=== PATIENT | male | born 1950 | race Caucasian/White ===

== ENCOUNTER → 2023-06-13 17:18 | Outpatient (REF) | payer MEDICARE, OTHER, SELFPAY | LOC: MRI 17:18 | PROVIDERS: ATTENDING PHYSICIAN Otolaryngology; FAMILY PHYSICIAN Student in an Organized Health Care Education/Training Program | DX: R13.12 Dysphagia, oropharyngeal phase (principal); R49.0 Dysphonia; R22.1 Localized swelling, mass and lump, neck | CPT/HCPCS: 70546; A9585 ==

== ENCOUNTER 2023-09-19 18:58 | Emergency (ER) | payer MEDICARE, OTHER, SELFPAY ==
[2023-09-19] VITALS (7 sets, daily range): BP systolic 121–148; BP diastolic 56–91; BMI 41.7
--- NOTE | 2023-09-19 19:24 | ED.GENMED ---
History of Present Illness
General
Chief Complaint: Dizziness
Source: patient and spouse
Exam Limitations: none
Time Seen by Provider: 09/19/23 19:07
Travel History
Have you had any contact with someone who has COVID-19?: No
Do you have any symptoms of coronavirus? Fever > 100 degrees, chills, cough, shortness of breath, sore throat, loss of taste or smell, muscle aches, or headache?: No
History of Present Illness
History of Present Illness:
72-year-old male who presents after he developed dizziness, lightheadedness and chest pressure. Patient states he was mowing the lawn on his riding mower stopped working. He had to push it up and then had to take the deck apart to fix it. As he
was cleaning it up and coming in he began to have chest pressure and felt lightheaded and asked his to check his blood pressure. Was found to be 90 systolic. Patient states he did feel little short of breath. He feels a little better now but
does feel little bit of chest tightness when he breathes deep. Patient admits he was not drinking much water. He has a history of pulmonary embolism but was after having a surgery and is no longer anticoagulated. No palpitations
Past History
Past History
ED Past Medical History: Asthma, HTN, Hypercholesterolemia, NIDDM, Renal failure (Renal insufficiency) and Other (Diverticulitis with colon resection colostomy and reversal, prostate enlargement, GI bleed, pneumonia, sleep apnea)
ED Past Surgical History: Appendectomy, Bowel resection and Tonsilectomy
Social History
Tobacco: Non-smoker
Personal:
Living: with family
Family History
Family History: Unable to obtain
Phy Exam
Physical Exam
Physical Exam:
CONSTITUTIONAL Patient alert and oriented to person, place and time. Well-appearing. Vital signs reviewed.
HEAD atraumatic, normocephalic.
EYES eyelids normal to inspection, Extraocular muscles intact, Conjunctiva normal, Sclera normal.
NECK normal range of motion, Trachea midline, no jugular venous distention.
RESPIRATORY CHEST No respiratory distress noted, Chest expansion equal, Bilateral breath sounds clear.
CARDIOVASCULAR regular rate and rhythm, Heart sounds normal.
ABDOMEN abdomen nontender, Bowel sounds normal. No distention.
BACK normal inspection, no obvious deformities
UPPER EXTREMITY range of motion normal, Motor strength normal, no cyanosis, no edema.
LOWER EXTREMITY range of motion normal, Motor strength normal, no cyanosis, trace bilateral edema.
NEURO Speech normal, No focal motor deficits, [place] coma scale 15, Memory normal, Cranial Nerves intact to screening exam.
SKIN skin warm, dry, and normal in color.
PSYCHIATRIC patient oriented to person place and time, Normal affect.
Course
Orders/Labs/Results
Orders:
Orders
09/19/23 19:15
Electrocardiogram (*1) Urgent
Reason for Study: Chest Pain
EKG- Treatment ONCE
09/19/23 19:20
Complete Blood Count/With Diff Urgent
Comprehensive Metabolic Panel Urgent
Troponin I Urgent
09/19/23 19:29
0.9% Sodium Chloride 500 ml [Nss] 500 ml IV BOLUS
CR Chest - 2 Views Urgent
Comment:
Reason For Exam: CP
09/19/23 20:19
0.9% Sodium Chloride 500 ml [Nss] 500 ml IV BOLUS
09/19/23 20:52
EKG- Treatment ONCE
09/19/23 22:17
Troponin I Urgent
09/19/23 22:20
Electrocardiogram (*1) Urgent
Reason for Study: Chest Pain
09/19/23 22:41
0.9% Sodium Chloride 500 ml [Nss] 500 ml IV BOLUS
Abnormal Lab Results
09/19/23
19:20
WBC 11.8 H 10^3/uL
(4.8-10.8)
RBC 4.36 L 10^6/uL
(4.70-6.10)
Hct 38.8 L %
(39.0-52.0)
Absolute Neuts (auto) 7.9 H 10^3/uL
(1.4-6.5)
Absolute Monos (auto) 1.3 H 10^3/uL
(0.1-0.6)
Lymphocytes % 18.8 L %
(20.5-51.1)
Monocytes % 11.0 H %
(1.7-9.3)
Chloride 110 H mmol/L
(98-107)
Carbon Dioxide 18 L mmol/L
(22-30)
BUN 49 H mg/dl
(9-20)
Creatinine 2.6 H mg/dL
(0.7-1.3)
09/19/23 19:20
09/19/23 19:20
Vital Signs
Initial and Last Documented VS:
Initial Vital Signs
Temp Pulse Resp BP Pulse Ox
98.2 F 59 20 135/67 98
09/19/23 19:02 09/19/23 19:02 09/19/23 19:02 09/19/23 19:02 09/19/23 19:02
Last Documented Vital Signs
Temp Pulse Resp BP Pulse Ox
98.2 F 56 11 123/65 97
09/19/23 19:02 09/19/23 23:00 09/19/23 23:00 09/19/23 23:00 09/19/23 23:00
MDM/Problems Addressed
MDM/Problems Addressed:
Near syncope, chest pain
*Pulse Oximetry
Patient hypoxic: no
*EKG
Interpreted by ED Provider?: Yes
Interpretation: abnormal
Comparison EKG: no changes
Rate: normal
Rhythm: sinus
QRS Pattern: right bundle branch block
Ischemia: non-specific ST changes
*[employer] Interpretation
Rate: normal
Interpretation: normal
Rhythm: sinus
*Critical Care Note
Total Time (30-74mins, 75-104mins- exclusive of procedures): Not Applicable
Data Reviewed
Review of Other/Old Records Reveals: Other (Prior echocardiogram from February 2022 reviewed)
Prescriptions/Medications Considered But Not Given:
Consider nitroglycerin but chest pain resolved.
Patient Management
Escalation/DeEscalation of care consider admission/obs:
Patient appears well. Repeat troponin initial troponin negative. Patient does feel better but just a little bit lightheaded. Suspect mostly related to volume contraction being outside for extended period time working on his lawnmower and mowing
the lawn. Patient's creatinine is bumped from baseline. Suspect related to volume contraction. Will advise repeat creatinine in 5 to 7 days. Patient maintain good hydration and avoid heat exposure. Given IV fluids in the emergency department.
I do feel he is safe for discharge and outpatient follow-up. Patient will follow with his PCP for
ED Attending Note
-
Portions of this chart may have been created with voice recognition software.� Occasional wrong word or��sound alike� substitutions may have occurred due to the inherent limitations of voice recognition software.
Discharge Plan
Departure
Patient Disposition: Home (Routine Discharge)
Date of Disposition: 09/20/23
Time of Disposition: 00:05
Patient with high blood pressure during this ER visit?: No
Discharge Problem:
Volume depletion, Acute kidney injury
Instructions: Acute kidney injury, Dehydration, Adult ED
Prescriptions:
No Action
albuterol sulfate 1 PUFF HFA aerosol inhaler
1 puff inhalation R Q4HPRN PRN (Reason: SOB)
dutasteride 0.5 MG capsule
0.5 mg PO QPM
atorvastatin 40 mg Tablet
40 mg PO QPM
lisinopril 20 mg Tablet
20 mg PO BID
glipizide 5 mg Tablet Extended Release 24hr
5 mg PO DAILY
acetaminophen 500 mg Tablet
1,000 mg PO BIDPRN PRN (Reason: mild pain)
amlodipine 10 mg Tablet
10 mg PO DAILY
hydrochlorothiazide 25 mg Tablet
25 mg PO DAILY
metformin 500 mg Tablet Extended Release 24 Hr
1,000 mg PO DAILY@1700
budesonide-formoterol [Symbicort] 160-4.5 mcg/actuation Hfa Aerosol Inhaler
2 puff INHALATION R BID
nebivolol 20 mg Tablet
20 mg PO QPM
duloxetine 30 mg Capsule,Delayed Release(Dr/Ec)
30 mg PO DAILY
Referrals:
Dariela Tilley MD [Family Provider] -
Activity Restrictions/Additional Instructions:
Please drink plenty fluids and avoid excessive heat exposure. Return immediately for chest pain, shortness of breath, palpitations or any other concerns. Please avoid strenuous or exertional activity until cleared by your doctor. Please have your
lab work repeated in the next 5 to 7 days as your kidney function is worse when compared to previous. This may be due to dehydration however repeat values to see if it improves will be important. Please have your doctor follow-up on the results
and advise further management if necessary.
Interventions
Interventions:
*Risk Screen - Suicide Last Done: 09/19/23 19:02
*General Assessment Last Done: 09/19/23 19:02
*Neglect/Abuse Screening Last Done: 09/19/23 19:02
ED- Fall Risk Assessment Last Done: 09/19/23 20:00
*ED COVID-19 Vaccine History Last Done: 09/19/23 20:02
*Nursing Disposition Last Done: 09/20/23 00:17
ED- Neurological Assessment Last Done: 09/19/23 20:00
ED- Cardiac Assessment Last Done: 09/19/23 20:00
ED Swallowing Screen Last Done: 09/19/23 20:02
Discharge Date and Time
Discharge Date/Time: 09/20/23 00:18
Print Language: WALLISIAN
[2023-09-19 19:26] LABS: % Basophils 0.8 % (0-2); % Immature Granulocytes 0.3 % (0-0.5); % Lymphocytes 18.8 % (20.5-51.1); % Neutrophils 67.1 % (42.2-75.2); Absolute Basophils 0.1 10^3/uL (0-0.2); Absolute Eosinophils 0.2 10^3/uL (0-0.7); Absolute Lymphocytes 2.2 10^3/uL (1.2-3.4); Absolute Monocytes 1.3 10^3/uL (0.1-0.6); Absolute Neutrophils 7.9 10^3/uL (1.4-6.5); Hematocrit 38.8 % (39.0-52.0); Hemoglobin 13.4 g/dL (13.0-18.0); Mean Corp Hgb Conc. 34.5 g/dL (33.0-37.0); Mean Corpuscular Hgb 30.7 pg (27.0-31.0); Mean Platelet Volume 9.9 fL (7.4-10.4); Nucleated Red Blood Cells % 0 % (-); Platelet Count 216 10^3/uL (130-400); Red Blood Cell Count 4.36 10^6/uL (4.70-6.10); Red Cell Dist. Width 13.7 % (11.5-14.5); White Blood Cell Count 11.8 10^3/uL (4.8-10.8)
[2023-09-19] MEDS: NSS 500 IV ×3 (19:39→22:46)
[2023-09-19 19:47] LABS: ALT (SGPT) 22 U/L (0-50); AST (SGOT) 25 U/L (17-59); Albumin 4.4 g/dl (3.5-5.0); Alkaline Phosphatase 99 U/L (38-126); Blood Urea Nitrogen 49 mg/dl (9-20); Calcium 10.1 mg/dl (8.4-10.2); Carbon Dioxide 18 mmol/L (22-30); Chloride 110 mmol/L (98-107); Glucose 86 mg/dl (70-99); Potassium 4.7 mmol/L (3.5-5.1); Sodium 139 mmol/L (135-145); Total Bilirubin 0.7 mg/dl (0.2-1.3); Total Protein 7.1 g/dl (6.3-8.2); eGFR 25.72
[2023-09-19 19:48] LABS: Troponin I < 0.012 ng/ml
[2023-09-19 22:46] LABS: Troponin I < 0.012 ng/ml
== END 2023-09-20 00:18 | disposition home or self-care (01) ==
LOC: EMR 18:58
PROVIDERS: EMERGENCY PHYSICIAN Emergency Medicine; FAMILY PHYSICIAN Student in an Organized Health Care Education/Training Program
DX: E86.9 Volume depletion, unspecified (principal); N17.9 Acute kidney failure, unspecified
CPT/HCPCS: 99285; 96360; 96361 ×3; 71046; 80053; 84484; 85025; 93005

== ENCOUNTER → 2023-12-23 07:12 | Outpatient (REF) | payer MEDICARE, OTHER, SELFPAY | LOC: RAD 07:12 | PROVIDERS: ATTENDING PHYSICIAN Student in an Organized Health Care Education/Training Program | DX: N18.32 Chronic kidney disease, stage 3b (principal) | CPT/HCPCS: 76770 ==

== ENCOUNTER → 2024-05-28 10:10 | Outpatient (REF) | payer MEDICARE, OTHER, SELFPAY | LOC: RAD 10:10 | PROVIDERS: ATTENDING PHYSICIAN Student in an Organized Health Care Education/Training Program | DX: J45.41 Moderate persistent asthma with (acute) exacerbation (principal) | CPT/HCPCS: 71046 ==

== ENCOUNTER → 2024-08-26 06:57 | Outpatient (REF) | payer MEDICARE, OTHER, SELFPAY | LOC: MRI 06:57 | PROVIDERS: ATTENDING PHYSICIAN Physician Assistant Surgical; FAMILY PHYSICIAN Student in an Organized Health Care Education/Training Program | DX: M48.062 Spinal stenosis, lumbar region with neurogenic claudication (principal); M54.50 Low back pain, unspecified; M54.16 Radiculopathy, lumbar region | CPT/HCPCS: 72148 ==

== ENCOUNTER → 2025-01-15 12:14 | Outpatient (REF) | payer MEDICARE, OTHER, SELFPAY | LOC: PAVMRI 12:14 | PROVIDERS: ATTENDING PHYSICIAN Student in an Organized Health Care Education/Training Program | DX: G25.2 Other specified forms of tremor (principal) | CPT/HCPCS: 70551 ==

== ENCOUNTER → 2025-01-18 10:33 | Outpatient (REF) | payer MEDICARE, OTHER, SELFPAY ==
--- NOTE | 2025-01-18 20:35 | EEGC.RPT ---
Continuous EEG Report
Recording
Start Date of Data Reviewed: 01/18/25
End Date of Data Reviewed: 01/18/25
Done with Video Recording: Yes
Electrocardiogram: Unremarkable
Report
�TECHNICAL REMARKS:��This is a technically satisfactory eighteen channel record employing 21 disc electrodes applied according to a measured international 10-20 electrode placement system.��There were no significant technical difficulties.��The
study was done on a [employer] System.
STUDY DURATION: 29�mins, 06 secs.
CLINICAL HISTORY: This is a 74-year-old man with dysphonia.� This study was requested to look for epileptiform abnormalities.
�
MEDICATIONS: no AED
REPORT: �At the onset of the EEG, the patient is awake. The background activity consists of 9-10 Hz, persistent, posteriorly dominant, moderate amplitude, symmetric and rhythmic activity that is reactive to eye-opening. Anteriorly, it consists of a
mixture of low voltage indeterminate activity and 20-25 Hz, persistent, low amplitude, symmetric and rhythmic activity.� Stepwise intermittent photic stimulation (1-31 Hz) and hyperventilation (2 min, good effort) do not induce any abnormalities.
Hyperventilation was not performed. Drowsiness is characterized by low amplitude mixed frequency activity, decreased eye blinking, and muscle artifact.
�
�IMPRESSION: �This is a normal awake and drowsy EEG. There is no evidence of focal slowing or epileptiform activity.� A normal EEG does not rule out epilepsy. If the clinical picture warrants, a sleep-deprived awake and sleep record may be helpful.
�
�
== END ==
LOC: EEG 10:33
PROVIDERS: ATTENDING PHYSICIAN Psychiatry & Neurology Neurology; FAMILY PHYSICIAN Student in an Organized Health Care Education/Training Program
DX: R49.0 Dysphonia (principal); E04.1 Nontoxic single thyroid nodule; R40.4 Transient alteration of awareness
CPT/HCPCS: 76536; 95816

== ENCOUNTER → 2025-03-08 06:39 | Outpatient (REF) | payer MEDICARE, OTHER, SELFPAY | LOC: PAVMRI 06:39 | PROVIDERS: ATTENDING PHYSICIAN Psychiatry & Neurology Neurology; FAMILY PHYSICIAN Student in an Organized Health Care Education/Training Program | DX: R40.4 Transient alteration of awareness (principal) | CPT/HCPCS: 72141 ==

== ENCOUNTER → 2025-03-08 07:54 | Outpatient (REF) | payer MEDICARE, OTHER, SELFPAY | LOC: RAD 07:54 | PROVIDERS: ATTENDING PHYSICIAN Internal Medicine Critical Care Medicine; FAMILY PHYSICIAN Student in an Organized Health Care Education/Training Program | DX: R06.09 Other forms of dyspnea (principal) | CPT/HCPCS: 71046 ==